=== PATIENT | male | born 1990 | race Two or more races ===

== ENCOUNTER 2019-10-08 22:05 | Emergency (ER) | payer BC ==
[~2019-10-08] VITALS: Ht 167.6 cm; Wt 92.5 kg
[2019-10-08 23:28] VITALS: BP 122/81
[2019-10-09] MEDS ORDERED: DexAMETHasone SOD PHOS 10MG/1ML VIAL INJ IM ONE (02:30)
[2019-10-09] MEDS ORDERED: ACETAMINOPHEN/CODEINE#3 (300/30mg) TAB PO ONE (02:30)
== END 2019-10-09 03:24 | disposition home or self-care (01) ==
LOC: ER 22:14
DX: J06.9 Acute upper respiratory infection, unspecified (principal)
CPT/HCPCS: 96372; 99283; J1100